=== PATIENT | male | born 1950 | race Caucasian/White ===

== ENCOUNTER → 2016-07-17 | Outpatient (CLI) | payer OTHER, BC ==
[2016-07-17 11:03] LABS: BASO % 0.2 %; BASO ABS # 0.01 K/uL (0-0.2); COMPLETE YES; EOS % 2.3 %; HEMATOCRIT 37.1 % (42-52); LYMPH % 41.1 %; LYMPH ABS # 1.98 K/uL (1.2-3.4); MEAN CORPUSCULAR HEMOGLOBIN 28.8 pg (25-34); MEAN CORPUSCULAR HGB CONC 32.3 g/dl (32-36); MEAN PLATELET VOLUME 10.5 fL (7.4-10.4); MONO % 13.5 %; NEUT % 42.9 %; PLATELET COUNT 178 K/uL (130-400); RED BLOOD COUNT 4.17 M/uL (4.7-6.1); WHITE BLOOD COUNT 4.82 K/uL (4.8-10.8)
[2016-07-17 11:05] LABS: BLOOD UREA NITROGEN 19 mg/dl (7-18); BUN/CREATININE RATIO 14.2 (10-20); CALCIUM 8.7 mg/dl (8.5-10.1); CARBON DIOXIDE 26 mmol/L (21-32); CHLORIDE 106 mmol/L (98-107); GLUCOSE 86 mg/dl (70-99); POTASSIUM 4.6 mmol/L (3.5-5.1); SODIUM 140 mmol/L (136-145)
[2016-07-17 11:10] LABS: FERRITIN 13.1 ng/ml (8.0-388.0); PROSTATE SPECIFIC ANTIGEN 0.395 ng/ml (0.000-4.000); TOTAL IRON BINDING CAPACITY 393 mcg/dl (250-450)
[2016-07-17 13:47] LABS: ESTIMATED AVERAGE GLUCOSE 114 mg/dl; HA1C FLAG Normal (Normal)
--- NOTE | 2016-07-21 12:48 | CODING QUERY MEDICAL NECESSITY ---
SUPPORTING DIAGNOSIS NEEDED A supporting diagnosis is required for the test/procedure performed on this patient in order for us to be reimbursed by the patient's insurance. Please provide a supporting diagnosis for the following test/procedure listed below next to the test name along with your signature. *If there is no additional diagnosis for this patient that would support the following test/procedure please document that below next to the test/procedure. Test(s)/Procedure(s) that require a supporting diagnosis: * GLYCATED HEMOGLOBIN DIAGNOSIS: * DOS: 07/17/16 Provider Signature: Date: Thank you oBnnie Burton Health Information Management Once completed, please kindly fax back to [phone] For questions please call [phone]
== END | disposition home or self-care (01) ==
LOC: C.LABBC 08:33
PROVIDERS: ATTEND Family Medicine
DX: I10 Essential (primary) hypertension (principal); D64.9 Anemia, unspecified; R73.03 Prediabetes; Z98.84 Bariatric surgery status; E53.8 Deficiency of other specified B group vitamins; E51.9 Thiamine deficiency, unspecified; Z12.5 Encounter for screening for malignant neoplasm of prostate

== ENCOUNTER → 2017-02-19 | Outpatient (CLI) | payer OTHER, BC ==
[2017-02-19 10:49] LABS: BASO % 0.2 %; BASO ABS # 0.01 K/uL (0-0.2); COMPLETE YES; EOS % 2.8 %; LYMPH % 43.6 %; LYMPH ABS # 1.86 K/uL (1.2-3.4); MEAN CORPUSCULAR HEMOGLOBIN 28.1 pg (25-34); MEAN CORPUSCULAR HGB CONC 30.5 g/dl (32-36); MEAN PLATELET VOLUME 10.6 fL (7.4-10.4); MONO % 13.6 %; NEUT % 39.8 %; PLATELET COUNT 181 K/uL (130-400); RED BLOOD COUNT 4.02 M/uL (4.7-6.1); WHITE BLOOD COUNT 4.27 K/uL (4.8-10.8)
[2017-02-19 11:13] LABS: BLOOD UREA NITROGEN 20 mg/dl (7-18); BUN/CREATININE RATIO 18.1 (10-20); CALCIUM 8.9 mg/dl (8.5-10.1); CARBON DIOXIDE 25 mmol/L (21-32); CHLORIDE 107 mmol/L (98-107); GLUCOSE 84 mg/dl (70-99); POTASSIUM 4.6 mmol/L (3.5-5.1); SODIUM 139 mmol/L (136-145)
[2017-02-19 11:18] LABS: CHOLESTEROL 143 mg/dl (0-200); CHOLESTEROL/HDL RATIO 2.7; FERRITIN 12.9 ng/ml (8.0-388.0); HDL CHOLESTEROL 53 mg/dl; LDL CHOLESTEROL CALCULATED 81 mg/dl; TRIGLYCERIDES 45 mg/dl (0-150); VERY LOW DENSITY LIPOPROT CALC 9 mg/dl
== END | disposition home or self-care (01) ==
LOC: C.LABBC 08:06
PROVIDERS: ATTEND Family Medicine
DX: I10 Essential (primary) hypertension (principal); R73.03 Prediabetes; K21.9 Gastro-esophageal reflux disease without esophagitis; E53.8 Deficiency of other specified B group vitamins; Z98.84 Bariatric surgery status; Z13.220 Encounter for screening for lipoid disorders

== ENCOUNTER → 2017-08-24 | Outpatient (CLI) | payer OTHER, BC ==
[2017-08-24 10:34] LABS: BASO % 0.5 %; BASO ABS # 0.02 K/uL (0-0.2); EOS % 2.5 %; EOS ABS # 0.11 K/uL (0-0.5); HEMATOCRIT 37.8 % (42-52); HEMOGLOBIN 11.6 g/dL (14.0-18.0); IG# 0.01 K/uL (0.00-0.02); LYMPH % 40.1 %; LYMPH ABS # 1.78 K/uL (1.2-3.4); MEAN CELL VOLUME 91.3 fL (80-100); MEAN CORPUSCULAR HGB CONC 30.7 g/dl (32-36); MEAN PLATELET VOLUME 10.4 fL (7.4-10.4); MONO % 13.1 %; MONO ABS # 0.58 K/uL (0.11-0.59); NEUT % 43.6 %; NEUT ABS # 1.94 K/uL (1.4-6.5); PLATELET COUNT 211 K/uL (130-400); RED CELL DISTRIBUTION WIDTH SD 46.5 fL (36.4-46.3); WHITE BLOOD COUNT 4.44 K/uL (4.8-10.8)
[2017-08-24 10:56] LABS: BLOOD UREA NITROGEN 19 mg/dl (7-18); CALCIUM 9.3 mg/dl (8.5-10.1); CARBON DIOXIDE 28 mmol/L (21-32); GLUCOSE 91 mg/dl (70-99); POTASSIUM 4.4 mmol/L (3.5-5.1); SODIUM 137 mmol/L (136-145)
[2017-08-24 10:57] LABS: HEMOGLOBIN A1C 5.7 % (4.5-5.6)
== END | disposition home or self-care (01) ==
LOC: C.LABBC 07:45
PROVIDERS: ATTEND Family Medicine
DX: I10 Essential (primary) hypertension (principal); D64.9 Anemia, unspecified; Z98.84 Bariatric surgery status; E53.8 Deficiency of other specified B group vitamins; R73.03 Prediabetes

== ENCOUNTER 2023-08-18 06:25 | Observation (INO) ==
--- NOTE | 2023-08-06 11:33 | PAT Medication Instructions ---
Medication Instructions Date of Service August 06, 2023 Home Medications Medication Instructions Recorded valsartan 80 mg tablet 80 mg PO BID #180 tabs 11/25/22 pantoprazole 40 mg tablet,delayed 40 mg PO QAM #90 tabs 04/13/23 release ketoconazole 2 % topical cream 1 applic topical BID #30 grams 07/30/23 ferrous sulfate 27 mg iron tablet 27 mg PO QAM valsartan 80 mg tablet 80 mg PO BID pantoprazole 40 mg tablet,delayed release 40 mg PO QAM ketoconazole 2 % topical cream 1 applic topical BID cholecalciferol (vitamin D3) 50 mcg (2,000 unit) capsule 2,000 units PO QAM cyanocobalamin (vitamin B-12) 1,000 mcg tablet 1,000 mcg PO QAM pediatric multivitamin no.76 (Flintstones Complete chewable tablet) 1 tab PO QAM STOP taking 24 hours before surgery ketoconazole 2 % topical cream 1 applic topical BID DO NOT take the morning of surgery ferrous sulfate 27 mg iron tablet 27 mg PO QAM valsartan 80 mg tablet 80 mg PO BID cholecalciferol (vitamin D3) 50 mcg (2,000 unit) capsule 2,000 units PO QAM cyanocobalamin (vitamin B-12) 1,000 mcg tablet 1,000 mcg PO QAM pediatric multivitamin no.76 (Flintstones Complete chewable tablet) 1 tab PO QAM Take morning of surgery With a small sip of water, OTHERWISE NOTHING TO EAT OR DRINK AFTER MIDNIGHT: pantoprazole 40 mg tablet,delayed release 40 mg PO QAM Take evening before surgery valsartan 80 mg tablet 80 mg PO BID Other Notes If you have any questions please call us at [phone] or [phone] or [phone] or [phone]
--- NOTE | 2023-08-06 11:35 | Anesthesiology Consultation ---
Date of Service August 06, 2023 Assessment & Plan (1) Encounter for pre-operative examination: - medical clearance 08/07/23: "...yes patient is medically cleared for surgery..." - PCP office visit 07/27/23 [place]: "...EKG done in office today, Sinus rhythm, no acute changes, no changes dating back to 1995 he is at acceptable risk to proceed with planned surgery..." - Outpatient joint assessment: Patient is currently scheduled for inpatient pathway. If re-evaluated and patient/surgeon requests outpatient pathway, patient is not recommended candidate for outpatient joint program from anesthesia standpoint. Chart Review Chart Review: Acceptable Risk for Surgery and Patient seen in Pre Admission Testing Teaching & Discussion Pre-Anesthesia Teaching/Discussion Notes: Instructed NPO after midnight before surgery, except medications with 15 cc of water. Medication instructions provided according to the PAT guidelines. History Surgery Operation Date: 08/18/23 08:05 Proposed Procedures p Right Total Shoulder Arthroplasty Reverse - Zana Nain Campbell MD Height/Weight Height: 5 ft 7 in Weight: 107 kg Allergies Allergy/AdvReac Type Severity Reaction Status Date / Time No Known Drug Allergies Allergy Verified 08/06/23 11:20 Medications Home Medications Medication Instructions Recorded Confirmed Last Taken ferrous sulfate 27 mg iron tablet 27 mg PO QAM 09/11/20 08/06/23 Unknown valsartan 80 mg tablet 80 mg PO BID #180 tabs 11/25/22 08/06/23 Unknown pantoprazole 40 mg tablet,delayed 40 mg PO QAM #90 tabs 04/13/23 08/06/23 Unknown release ketoconazole 2 % topical cream 1 applic topical BID #30 grams 07/30/23 08/06/23 Unknown cholecalciferol (vitamin D3) 50 2,000 units PO QAM 08/06/23 08/06/23 Unknown mcg (2,000 unit) capsule cyanocobalamin (vitamin B-12) 1,000 mcg PO QAM 08/06/23 08/06/23 Unknown 1,000 mcg tablet pediatric multivitamin no.76 1 tab PO QAM 08/06/23 08/06/23 Unknown (Flintstones Complete chewable tablet) Past Medical History Medical History (Updated 08/06/23 @ 12:18 by Bianca Steward) Anemia Benign essential hypertension controlled, stable per pt Carpal tunnel syndrome of right wrist Common migraine without aura pt denies Depression hx, no meds currently GERD without esophagitis controlled, stable per pt History of anesthesia reaction post-op confusion, denies violent behavior post-op History of COVID-19 06/2023, home test, mild symptoms>resolved Nausea and vomiting after administration of anesthetic agent denies needing scop patch Prediabetes Sleep apnea dx-no longer uses device since having gastric bypass Spinal stenosis Thiamin deficiency Vertigo "once every 2 years or so" Patient denies h/o stroke, seizures, heart attack, heart failure, blood clots/DVTs or blood transfusions. Exercise / Class Metabolic Activity II 4-5 Yardwork/Stairs/Walk up hill (denies chest discomfort or shortness of breath with 1 FOS) Past Family History Family History Mother Family history of diabetes mellitus Stroke Sister Family history of diabetes mellitus 2 Pancreatic cancer Brother Cirrhosis, alcoholic Father Hodgkin lymphoma Other Diabetes Denies family history of Ovarian cancer Prostate cancer Myocardial infarction Breast cancer Colorectal cancer Past Surgical History Surgical History History of appendectomy History of arthroscopy of left knee x4 History of arthroscopy of right knee x2 History of repair of left rotator cuff (04/2016) History of tonsillectomy History of total left knee replacement (TKR) (2000) History of total right knee replacement (TKR) (2009) Hx of colonoscopy Hx of vasectomy S/P ankle fusion right, 03/2019 Status post gastric bypass for obesity ~[place], [place] Past Anesthesia History No Hx of Anesthesia Complications and No Family Hx of Anesthesia Complications History of PONV No Hx of Motion Sickness and History of PONV (denies needing scop patch) Social History Smoking Status: Former smoker tobacco type: cigarettes Smoking cigarettes per day: 1PPDx (about 6 years) Do You Dip or Chew Tobacco: No Hx Alcohol Use: Yes Alcohol type: beer alcohol intake frequency: a few times a week Hx Substance Use: No substance use type: does not use Review of Systems Patient denies chest pain, shortness of breath, dyspnea on exertion, fever, chills, cough, wheezing, or palpitations. Physical Exam Vital Signs Vitals BP 123/80 P 66 TEMP 98 SP02 98% on RA RESP 18 Physical Patient resting comfortably in chair in no acute distress, alert and oriented, responding appropriately throughout visit Full cervical extension range of motion without pain TMD < 3 finger breadths Mallampati Score 3 Dentition: chipped right upper tooth and several crowns, denies loose teeth, implants or bridges Lungs: normal respiratory effort. Good air movement, clear throughout to auscultation, no adventitious breath sounds Cardiac: regular rate and rhythm, no murmurs noted Carotid arteries: negative bruit bilat Lab Results Anesthesia Preop Results Results Anesthesia Widget: WBC 5.61 K/ul (4.8-10.8) 07/20/23 Hgb 13.0 g/dl (14.0-18.0) L 07/20/23 Hct 40.5 % (42.0-52.0) L 07/20/23 Plt 281 K/uL (130-400) 07/20/23 Na 137 mmol/L (136-145) 07/20/23 K 4.5 mmol/L (3.5-5.1) 07/20/23 Cl 104 mmol/L (98-107) 07/20/23 CO2 26 mmol/L (21-32) 07/20/23 BUN 17 mg/dl (6-23) 07/20/23 Creat 1.12 mg/dl (0.6-1.4) 07/20/23 Glucose Level 99 mg/dl (70-99(Fasting)) 07/20/23 PT 10.3 Seconds (9.0-12.0) 08/06/23 PTT 27 Seconds (21-31) 08/06/23 INR 0.9 (0.9-1.1) 08/06/23 HA1c 6.2 % (4.5-5.6) H 07/20/23 Urine Color Yellow 08/06/23 Urine Appearance Clear (Clear) 08/06/23 Urine pH 7.5 (4.5-7.5) 08/06/23 Urine Specific [place] 1.008 (1.000-1.030) 08/06/23 Urine Protein Negative (Negative) 08/06/23 Urine Glucose (UA) Negative (Negative) 08/06/23 Urine Ketones Negative (Negative) 08/06/23 Urine Blood Negative (Negative) 08/06/23 Urine Nitrite Negative (Negative) 08/06/23 Urine Bilirubin Negative (Negative) 08/06/23 Urine Urobilinogen Negative (Negative) 08/06/23 Urine Leukocyte Esterase Negative (Negative) 08/06/23 Blood Type A Negative 08/06/23 Antibody Screen NEGATIVE 08/06/23 Testing Electrocardiogram Date: 07/28/23 Sinus rhythm with first degree AV block with occasional supraventricular premature complexes, rate 71 bpm Inferior DE, probably old Chest X-Ray Date: 08/06/23 No acute cardiopulmonary findings.
[2023-08-18] MEDS ORDERED: BUPIVACAINE 0.5 % 5 MG/1 ML PF 10ML VIAL ONE ×2 (06:39)
[2023-08-18] MEDS ORDERED: MIDAZOLAM HCL 1 MG/ML 2ML VIAL ONE (06:48)
[2023-08-18] MEDS ORDERED: fentaNYL citrate PF 100 MCG/2 ML VIAL ONE (06:48)
--- NOTE | 2023-08-18 06:48 | History & Physical Bridge Note ---
Date of Service August 18, 2023 History & Physical Bridge Note I have examined the patient, reviewed the History & Physical and in the interval since the performance of the History & Physical I have noted the following changes of clinical significance: no changes noted
[2023-08-18] MEDS: CeleBREX 200 MG CAP PO SCH (06:54)
[2023-08-18] MEDS: ACETAMINOPHEN 500 MG TAB PO SCH ×2 (06:54→14:06)
[2023-08-18] MEDS: Scopolamine 1 MG TDSY TD SCH (06:54)
[2023-08-18] MEDS: LR 60ML/HR IV SCH (06:58)
[2023-08-18] MEDS: LR 15ML/HR IV SCH (07:11)
[2023-08-18] MEDS: TRANEXAMIC ACID 1,000 MG **IV Pre-op IV SCH (07:35)
[2023-08-18] MEDS ORDERED: ATROPINE SULFATE 0.1 MG/ML 10ML SYR IV PRN (07:55)
[2023-08-18] MEDS ORDERED: HYDROmorphone INJ 1 MG/ML SYRINGE IV PRN ×2 (07:55→13:33)
[2023-08-18] MEDS ORDERED: PROMETHAZINE HCL 6.25 MG in SODIUM CHLORIDE 0.9% 50 ML IV PRN (07:55)
[2023-08-18] MEDS ORDERED: ePHEDrine sulfate 50 MG/ML AMP IV PRN (07:55)
[2023-08-18] MEDS: ceFAZolin 2000MG 2,000 MG/15 ML SYR IV SCH ×2 (08:26→16:42)
--- OUTSIDE RECORDS SUMMARY | 2023-08-18 08:30 | External Medical Summary | Continuity of Care Document ---
Author Name Unknown Organization [id number] Address [address] [place] [id number] Care Team Providers Care J2Ee Software Engineer Name Role Phone Nahomy Nguyễn Primary Care Physician [phone] Encounter [facility] [id number] Date(s): 08/06/23 - 08/06/23 [facility] [address] [place] [id number] [facility] [address] [address] Encounter Diagnosis Left shoulder pain(Discharge Diagnosis) - 08/06/23 Right shoulder pain(Discharge Diagnosis) - 08/06/23 Discharge Disposition: Home or Self Care Attending Physician: MD Shannan, Zana A Allergies, Adverse Reactions, Alerts No Known Allergies Medications Calcium 600+D Start: 01/27/23 14:57:00 EDT Start Date: 01/27/23 Status: Ordered Diovan 80 mg oral tablet Start: 10/19/18 14:09:00 EDT, 1 tab, PO, Daily Start Date: 10/19/18 Status: Ordered Nicolas-Iron Start: 01/27/23 14:57:00 EDT, PO, Daily Start Date: 01/27/23 Status: Ordered multivitamin Start: 08/06/23 9:22:00 EDT, 1 tab, PO, Daily Start Date: 08/06/23 Status: Ordered Protonix 40 mg oral delayed release tablet Start: 10/19/18 14:09:00 EDT, 1 tab, PO, Daily Start Date: 10/19/18 Status: Ordered Vitamin B-12 Start: 10/19/18 14:10:00 EDT, 200 mcg =, Daily Start Date: 10/19/18 Status: Ordered Mental Status 08/06/23 Barriers to Learning one year None evide nt Mandatory Health Literacy Documentation Yes Health Literacy Communication Barriers N ever Primary Language Mozamb[place] Problem List Condition Confirmation Course Effective Dates Status Health St atus Informant Right ankle pain Confirmed Active Right foot pain Confirmed Active Heart burn Confirmed Active H/O total knee replacement Confirmed Active Hypertension Confirmed Active Arthritis of foot Confirmed Active Right knee pain Confirmed Active Right shoulder pain Confirmed Active Left shoulder pain Confirmed Active Postop check Confirmed Active Diagnosis Diagnosis Type Effective Dates Health Status Cl inical Service Informant Left shoulder pain Discharge Diagnosis 08/06/23 Right shoulder pain Discharge Diagnosis 08/06/23 Procedures Procedure Date Related Diagnosis Body Site Status Foot 1 03/25/19 Completed Bariatric operative procedure Completed Knee replacement Complete d Knee replacement Complete d Shoulder Completed 11. Right triple arthrodesis. 2. Percutaneous tendo-Achilles lengthening. Vital Signs Most recent to oldest [Reference Range]: 1 Height 170 cm (08/06/23 9:24 AM) Patient Weight 110 kg (08/06/23 9:24 AM) Body Mass Index 38.06 kg/m2 (08/06/23 9:24 AM) Temperature [36.5-37.9 DegC] 36.4 DegC *LOW* (08/06/23 9:24 AM) Heart Rate 75 bpm (08/06/23 9:24 AM) Blood Pressure 118/74mmHg (08/06/23 9:24 AM) Cuff Pulse Pressure 44 mmHg (08/06/23 9:24 AM) Social History Social History Type Response Smoking Status Never smoked cigaret lexie Sex Male Implantable Device List Procedure Provider Procedure Date Device Type Site Unknown Unknown 03/25/19 Unknown Unknown Device Identifier Serial Number Lot or Batch Number Manufacturing Date Expiration Date Distinct Identification Code MRI Safety Implantable Status Assigning Authority Unknown Unknown [id number] Unknown 12/28/20 Unknown Unknown Active Unkn own Unknown Unknown na Unknown 07/15/20 Unknown Unknown Active Unkn own Unknown Unknown na Unknown Unknown Unknown Unknown Active Unkn own Unknown Unknown na Unknown Unknown Unknown Unknown Active Unkn own Unknown Unknown na Unknown Unknown Unknown Unknown Active Unkn own Ortho Outpt Note * MD Shannan, Zana A: MODIFY MD Shannan, Zana A: MODIFY, MODIFY Event Display: Ortho Outpt Note Authored Date: [id number] Name:NATE BRENNAN Patient Number:[id number] :[id number] Date of Service:08/06/2023 CHIEF COMPLAINT: Follow-up right shoulder pain HPI: [id number] yearoldMalewho presents today forfollow-up of right shoulder pain. Patient reports he fell forward and caught himself with both hands and then fell directly onto his right shoulder. The incident happened at the end of December 2022. He is having pain in his shoulder at today's visit. He has attempted conservative treatment and asks about a rotator cuff repair vs reverse TSA. He has desires to continue playing golf later in his life. Patient has had a PCP visit recently with an EKG. Today he rates his pain 3/10. PHYSICAL EXAM: Focusing on the patient'srightupper extremity: 2+ radial pulse Sensation to light touch is intact distally Motor to the median, radial, ulnar, AIN, PIN, musculocutaneous nervesis intact. Range of motion of the shoulder: Forward elevation 145; Abduction 155; external rotation 10; internal rotation L4 + Scapular substitution Lift-off and belly press intact - Tenderness over the AC joint DIAGNOSTIC REVIEW: An ultrasound from 05/12/2023 revealed biceps tendinopathy, AC joint arthritis with an effusion, full thickness supraspinatus tear and either partial or full- thickness subscapularis tear. I reviewed an MRI of the right shoulder which shows chronic appearing full thickness tear of supraspinatus and subscapularis with associated muscle atrophy and tendon retraction. Glenohumeral and AC joint arthritis andeffusion. Chronic high grade tendon split tearlong head of the biceps, no longer within the bicipital groove. I reviewed 3views of the right shoulder including AP, Scapulary Y, and axillary views which show no acute fracture or dislocation. There is degenerative changes of the AC joint with spurring of theinferior clavicle. Mild degenerative changes of the glenohumeral joint with subchondral cysts in the humeral head and small amount of calcification possibly calcific tendinosis versus bone spur. IMPRESSION: Right shoulder pain secondarily to AC separation Grade 1 with aggravation of degenerative changes and full thickness supraspinatus and subscapularis tears Acute versus acute on chronic PLAN: After a lengthy discussion with the patient today regarding my above clinical findings, as well as reviewing their imaging with them, their treatment options of conservative management versus surgical intervention were discussed. The patient and I discussed a rotator cuff repair vs reverse TSA and we agreed to proceed with the reverse TSA, due to his significant arthritis and rotator cuff tear. - The risk and benefits of each were discussed. - The risks of surgery included but not limited to: Infection, bleeding, nerve damage, continued pain, progression of arthritis, stiffness, failure of the repair, failure of the hardware, and deep vein thrombosis. They would like to proceed with surgery and informed consent was signed for right reverse total shoulder arthroplasty. In the meantime they will proceed with the following: - They may use anti-inflammatories alternating with Tylenol as needed for pain. - Obtain medical clearance from PCP - Obtain CT scan of right shoulder, order was placed - Avoid aggravating activities. Modify activities as needed - Continue HEP as tolerated - They will speak with mysurgery greens cutter and have a history and physical examination performed. The patient understood all my instructions and explanation: all their questions were satisfactorilyaddressed. ATTESTATION: I, Thong Blount, scribing forand in the presence of, Zana Campbell, on this date,08/06/2023 09:32:35. I, Dr. Campbell, saw and examined the patient with Thong Blount acting as my scribe. I reviewed thenote and agree with the documented findings and the plan of care I developed. Electronic Signature on File Electronically Reviewed/Signed by: Thong Blount Author Signature Dt/Tm:08/06/2023 09:58 AM Electronically Reviewed/Signed by: Zana Campbell MD Cosigner Signature Dt/Tm: 08/06/2023 01:05 PM [facility] Cyber Security Administrator [facility] of [facility] [address], [place] [address] DS Patient Care team information Care Team Personnel Name: MD Nguyễn Cara M Position: Referring DIRECT Member Role: Primary Care Provider Address: Address: [address] [place] [id number] Care Team Related Persons Name: SINAN SHARIF Address: home [address] [place] [phone]
[2023-08-18] MEDS ORDERED: DROPERIDOL 5 MG/2 ML VIAL IV PRN (08:44)
[2023-08-18] MEDS ORDERED: PROPOFOL IV EMULSION 10 MG/ML 20 ML VIAL IV ONE (09:01)
[2023-08-18] MEDS ORDERED: ONDANSETRON INJ 2 MG/ML 2 ML VIAL ONE (09:01)
[2023-08-18] MEDS ORDERED: ROCURONIUM BROMIDE 10 MG/ML 5 ML VIAL IV ONE ×2 (09:01→09:24)
[2023-08-18] MEDS ORDERED: LIDOCAINE 2% 2 ML VIAL/AMP(20MG/ML) INFIL ONE (09:01)
[2023-08-18] MEDS ORDERED: SUGAMMADEX SODIUM 200 MG/2 ML VIAL IV ONE (09:02)
[2023-08-18] MEDS: LIDOCAINE 1%/EPINEPHRINE 1:100,000 20 ML VIAL ONE (09:19)
[2023-08-18] MEDS: BUPIVACAINE 0.5 % 5 MG/1 ML MPF 30ML VIAL ONE (09:19)
[2023-08-18] MEDS: ORTHO JOINT ANESTHETIC ONE (09:19)
[2023-08-18] MEDS ORDERED: PHENYLEPHRINE HCL 10 MG/ML VIAL ONE (09:24)
[2023-08-18] MEDS: TRANEXAMIC ACID 1,000 MG **IV Intra-op IV SCH (10:06)
[2023-08-18] MEDS: ROPIV 0.5% 246mg, Ketorolac 30mg, EPINEPHrine 0.5mg in NSS INFIL SCH (11:25)
--- NOTE | 2023-08-18 11:47 | Post Operative Brief Note ---
Immediate Post Op Note v1 Date of Surgery August 18, 2023 Pre & Post Diagnosis Operation Date: 08/18/23 08:05 Pre-Op Diagnosis: Right Shoulder OA, Rotator Cuff Tear Post-Op Diagnosis: Right Shoulder OA, Rotator Cuff Tear I identified the patient and participated in the time-out.: Yes Procedure Operation Date: 08/18/23 08:05 Actual Procedures p Right Reverse Total Shoulder Arthroplasty(Right) - Zana Campbell MD Surgeon Zana Campbell MD Machine Repairer Maintenance Mena Burks PA-C (No fellow avail) Estimated Blood Loss 75 Findings Consistent with Post-Op Diagnosis Fluids 1100 cc Specimens Right humeral head Anesthesia Type General Regional Complications none
--- NOTE | 2023-08-18 11:49 | Operative Report ---
Post Operative Report Pre & Post Diagnosis Operation Date: 08/18/23 08:05 Pre-Op Diagnosis: Right Shoulder OA, Rotator Cuff Tear Post-Op Diagnosis: Right Shoulder OA, Rotator Cuff Tear I identified the patient and participated in the time-out.: Yes Procedure Operation Date: 08/18/23 08:05 Actual Procedures p Right Reverse Total Shoulder Arthroplasty(Right) - Zana Campbell MD Surgeon Zana Campbell MD Wool Washer Feeder Mena Burks PA-C (No fellow avail) Estimated Blood Loss 75 Findings See Below Right shoulder OA, osteophytes, sclerosis, Supraspinatus tear Shoulder ROM Pre-op: FF 140 deg; Abd 140 deg w/ crepitus; ER 65 deg; IR -30 deg Shoulder ROM Post-op: FF 155 deg; Abd 160 deg; ER 95 deg; IR 40 deg Fluids 1100 cc Specimens Right humeral head Anesthesia Type General Regional Complications none Indications Patient is a 73-year-old male who developed right shoulder OA and rotator cuff tear with pain and decreased mobility. I recommended that she undergo a right shoulder Reverse TSA. The patient understands the risks of the operation including bleeding, infection, re-operation, damage to nerves and arteries, continued shoulder pain, shoulder stiffness, infection, and/or loosening of the components which may require additional surgery. The patient also understands the risks of heart attack, stroke, pulmonary embolus, and . The patient wished to proceed and the consent form was signed. Description of Procedure IMPLANTS: Arthrex Univers Revers Modular Glenoid System 1) Humeral Stem 12 Univers Reverse [place] Stem, with size 36 Neutral Suture Cup at 135. 2) Humeral Liner 36, + 3 mm. 3) Glenoid Modular Baseplate 24 mm & Central Screw 10 x 20 mm. 4) Glenosphere 36/24 mm + 4 Lateral offset. 5) Glenoid Locking screw 5.5 x (24 & 28 mm). Mena Burks PA-C is assisting with positioning, retracting, and closure due to fellow not available. PROCEDURE: The patient was taken to the Operating Room and placed in the beach-chair position after administration of an interscalene block and general anesthesia. 2 g of intravenous Ancef were administered. The right shoulder was then prepped and draped in the standard sterile fashion. Sequential compression devices were placed in the legs. TXA 1 g was given pre-op and a second dose was given before prepping the humeral shaft. The patient was identified and a multidisciplinary time-out identified the right shoulder as the correct shoulder and operative limb. First, the coracoid, acromion, clavicle, and planned deltopectoral incision were marked and then anesthetized with a 50:50 mixture of 1% lidocaine and 0.5% Marcaine with epinephrine. Sharp dissection was carried down to the deltopectoral interval. The cephalic vein was identified and protected laterally as was the deltoid. The deltopectoral interval was dissected to expose the clavipectoral fascia which was then incised. Blunt dissect was used to separate the deltoid from the humeral head and rotator cuff. A self-retaining shoulder retractor was placed beneath the conjoined tendon and deltoid muscle, exposing the subscapularis tendon. The superior 1cm of the Pec major was released. The biceps tendon was identified in its groove and had degeneration it was tenodesed to the Pec major tendon with #1 Vicryl. The biceps tendon was unroofed from its groove, and the rotator interval was split to the base of the coracoid and the biceps was released from the glenoid. The subscapularis was released and tagged. The torn Supraspinatus was tagged with #1 Vicryl. Next, the humeral head was dislocated by adducting, extending, and externally rotation and the capsulotomy was carried down all the way around to the posterior aspect of the humeral head, taking care to stay on bone. Any humeral osteophytes anterior, inferiorly were removed with a rongeur to identify the medial calcar on the humeral neck. The humeral intramedullary entry point was entered posterior to the bicipital groove with a 2.4mm guide pin, followed by 6 mm drill, and then IM reamer. The resection guide was attached to the IM reamer and pinned to the humeral head with desired resection of 135. The IM reamer was removed and the humeral head was resected in the standard fashion. The resection protector was placed over the humeral surface. Our attention was drawn to the glenoid. The humerus was retracted and displaced posteriorly. The labrum was circumferentially removed as was the anterior capsule, which was carefully dissected free from the subscapularis tendon. The glenoid was exposed with Cavazos/Derra/90 deg Eloise retractor superiorly, Guzman retractor anteriorly, and Batman retractor posteriorly. The glenoid was prepped with curettes to remove any remaining cartilage. Using the specific VIP patient specific glenoid aiming guide for a 24 mm baseplate was used to place the 2.8 mm guide wire. The glenoid surface was prepped for the baseplate with the glenoid reamers (peripheral and inferior offset). The modular central screw was prepped with cannulated 10 mm drill, then tapped to a depth of 20 mm. The baseplate with central screw was screwed into place flush to the glenoid. The inferior screw hole was drilled first followed by the superior screw and a locking screws were placed. The glenosphere was inserted onto the baseplate and locked into place in the standard fashion. The humerus was dislocated and humeral broaches 5 through 12 were sequentially placed in the humeral shaft until excellent fit. The A/P position of the broach was checked. The central reamer guide was placed. The humeral cup reamer prepped the remainder of the humerus. The 12 stem was impacted into place with excellent purchase was achieved. The humeral trial liner 3 mm was placed. The shoulder was reduced with excellent fit and good stability of 1+ translation anteriorly and posteriorly. The shoulder ROM showed improved motion noted above. The definitive humeral liner was then placed. The Supraspinatus and Subscapularis were repaired by tying the sutures to the shaft and implant. The rotator interval was closed with 0 Vicryl. The ROM and stability was unchanged. The pulsatile lavage was used to copiously irrigate the wound throughout the case. The deltopectoral interval was re-approximated with #1-Vicryl, the subcutaneous tissue was closed with 3-0 Vircyl, and the skin was closed with ZipLine and Shield. The wounds were dressed with sterile gauze, and Tegaderm. The patient was then transferred to the PACU in stable condition after application of an abduction sling. POST-OP: The patient will be admitted for observation overnight. Patient will be seen by PT/OT prior to discharge. Pain medicine will be used as needed. Continue abduction sling 4 weeks. I attest to the content of the Intraoperative Record and any orders documented therein. Any exceptions are noted below.
--- NOTE | 2023-08-18 12:09 | Operative Report ---
Post Operative Report Pre & Post Diagnosis Operation Date: 08/18/23 08:05 Pre-Op Diagnosis: Right Shoulder Rotator Cuff Tear, Right shoulder arthritis Post-Op Diagnosis: Right Shoulder Rotator Cuff Tear, Right shoulder arthritis I identified the patient and participated in the time-out.: Yes Procedure Operation Date: 08/18/23 08:05 Actual Procedures p Right Reverse Total Shoulder Arthroplasty(Right) - Zana Campbell MD Surgeon Opal Burks PA-C Technical Editor Mena Burks PA-C (No fellow avail) Estimated Blood Loss 75 Findings Consistent with Post-Op Diagnosis Osteoarthritis right shoulder rotator cuff tear Specimens humeral head Anesthesia Type General Regional Description of Procedure Patient was taken to the operating room and placed under general anesthesia with a peripheral nerve block. Time out was performed. He was given 2 g of IV Ancef for surgical prophylaxis. He was given 1 g of IV TXA preoperatively. Patient was prepped and draped in routine sterile fashion. Is present during the entire case and assisted with positioning, tissue retraction, trialing of implants, implantation of hardware, closure and dressings. Please see Dr. Campbell's operative report for further details regarding today's procedure. Patient was awakened and transferred to the recovery room in stable condition. I attest to the content of the Intraoperative Record and any orders documented therein. Any exceptions are noted below.
--- NOTE | 2023-08-18 12:46 | XRay Report ---
XR shoulder RT min 2V routine CLINICAL HISTORY: Ap and scapular Y view TECHNIQUE: 2 views of the right shoulder were obtained. Comparison: Comparison is made to shoulder radiograph 01/27/2023 FINDINGS: Patient is status post shoulder arthroplasty with expected postsurgical changes including soft tissue swelling and subcutaneous emphysema. No periarticular lucency or hardware fracture is seen. IMPRESSION: Expected postoperative appearance status post placement of shoulder arthroplasty. ACT 112: Negative or not required by law. Electronically signed by: Ney Rothman M.D. 08/18/2023 12:44 PM
--- NOTE | 2023-08-18 13:00 | Anesthesiology Progress Note ---
Date of Service August 18, 2023 Anesthesia Post Procedure Vital Signs Vital Signs: Temp Pulse Pulse Resp BP Pulse Ox O2 Del Method 08/18/23 12:50 36.4 C L 73 16 107/41 L 95 Room Air 08/18/23 12:40 68 12 110/62 99 Oxymask 08/18/23 12:30 84 12 102/60 98 Oxymask 08/18/23 12:20 69 18 108/54 L 100 Oxymask 08/18/23 12:10 84 16 110/67 97 Oxymask 08/18/23 12:03 36.0 C L 79 16 96/68 L 96 Oxymask 08/18/23 06:40 36.6 C 68 16 139/71 98 Room Air O2 Flow Rate 08/18/23 12:50 08/18/23 12:40 4 08/18/23 12:30 4 08/18/23 12:20 4 08/18/23 12:10 4 08/18/23 12:03 6 08/18/23 06:40 Pain Intensity Right Shoulder: Pain Intensity: 5 Transfer of Care Handoff Completed per policy Notes Mental Status: alert / awake / arousable and participated in evaluation Nausea / Vomiting: adequately controlled Pain: adequately controlled Airway Patency, RR, SpO2: stable & adequate BP & HR: stable & adequate Hydration State: stable & adequate Anesthetic Complications: no major complications apparent and Pt Satisfied with anesthetic care
[2023-08-18] MEDS ORDERED: TAMSULOSIN HCL 0.4 MG CAP PO PRN (13:33)
[2023-08-18] MEDS ORDERED: MAGNESIUM HYDROXIDE SUSP 30 ML UDC PO PRN (13:33)
[2023-08-18] MEDS ORDERED: METOCLOPRAMIDE HCL INJ 5 MG/ML 2 ML VIAL IV PRN (13:33)
[2023-08-18] MEDS ORDERED: NALOXONE HCL 0.4 MG/1 ML VIAL/CARP IV PRN (13:33)
[2023-08-18] MEDS ORDERED: ONDANSETRON INJ 2 MG/ML 2 ML VIAL IV PRN (13:33)
[2023-08-18] MEDS ORDERED: HYDROmorphone INJ 0.5 MG/0.5 ML SYR IV PRN (13:33)
[2023-08-18] MEDS ORDERED: bisacodyL 10 MG SUPP PR PRN (13:33)
[2023-08-18] MEDS: SODIUM CHLORIDE 0.9% 1,000 ML IV SCH (14:04)
[2023-08-18] MEDS: ASCORBIC ACID 500 MG TAB PO SCH (16:42)
[2023-08-18] MEDS: FERROUS GLUCONATE 324 MG TAB PO SCH (16:42)
[2023-08-18] MEDS: Scopolamine CHECK PATCH PLACEMENT SCH (16:43)
[2023-08-18] MEDS: DOCUSATE SODIUM 100 MG CAP PO SCH (19:36)
[2023-08-18] MEDS: SENNA 8.6 MG TAB PO SCH (19:36)
[2023-08-18] MEDS: oxyCODONE HCL IR 5 MG TAB (IMMEDIATE RELEASE) PO PRN (19:37)
[2023-08-18] MEDS: VALSARTAN 80 MG TAB PO SCH (19:37)
[2023-08-19 06:19] LABS: Hematocrit (blood only) 34.9 % (42.0-52.0); Hemoglobin 10.8 g/dl (14.0-18.0); Mean Corpuscular Hemoglobin 29.9 pg (25.0-34.0); Mean Corpuscular Hgb Conc 30.9 g/dL (32.0-36.0); Mean Corpuscular Volume 96.7 fL (80.0-100.0); Platelet Count 173 K/uL (130-400); RDW Coefficient of Variation 14.2 % (11.5-14.5); RDW Standard Deviation 50.8 fL (36.4-46.3); Red Blood Count 3.61 M/uL (4.70-6.10); White Blood Count 6.98 K/ul (4.8-10.8)
[2023-08-19 06:37] LABS: BUN Creatinine Ratio 13.8 (10-20); Calcium 8.7 mg/dl (8.6-10.3); Creatinine Clr Calc Pharmacy 67.8 ml/min; Est GFR (Non-African American) 62.1 ml/min; Potassium 4.3 mmol/L (3.5-5.1)
[2023-08-19] MEDS: MULTIVITAMIN CHEWABLE TAB PO SCH (07:37)
[2023-08-19] MEDS: CHOLECALCIFEROL 25 MCG (1000 UNITS) TAB PO SCH (07:37)
[2023-08-19] MEDS: ASPIRIN 81 MG ECTAB PO SCH (07:37)
[2023-08-19] MEDS: PANTOprazole 40 MG TAB PO SCH (07:37)
[2023-08-19] MEDS: CYANOCOBALAMIN (B-12) 500 MCG TABLET PO SCH (07:38)
--- NOTE | 2023-08-19 09:51 | Orthopedic Progress Note ---
Date of Service August 19, 2023 Assessment & Plan (1) Status post reverse total shoulder replacement: Plan: Postop day 1-status post reverse total shoulder arthroplasty right shoulder with Dr. Campbell Home medications have been continued. PT and OT this morning. He did well and was safe for discharge. Aspirin 81 mg p.o. twice daily for 6 weeks after surgery. Teds and AV impulse boots while in house. Silverlon dressing applied to the right shoulder today. Sling for comfort when out of bed. Sling readjusted today. Home exercises as taught by the physical therapist and occupational therapist today. Regular diet. Pain medication as needed for pain. Ice to right shoulder as needed for pain and swelling. Case management for disposition needs. He is not interested in home health. He feels he can do his home exercises on his own at home. Advise no heavy pushing, pulling or lifting. No lifting more than a coffee cup in his right hand. He may use his hand for light daily activities as tolerated. Discharge to home today. Will discuss findings with Dr. Campbell. Follow-up as outpatient as scheduled. Call with any problems, questions or concerns. Patient understands and agrees with the plan. Admission and Anticipated Discharge Date Admission Date: August 18, 2023 Subjective Patient sitting up in bed. Doing well. at bedside. He has not had any postoperative nausea, vomiting. He does have some tingling in his fingers and was told by anesthesiology that his block might still be working. He is anxious to go home. He is tolerated breakfast. He overall feels very well. Physical Exam Musculoskeletal: Exam of right upper extremity: He has no distal edema. Mild paresthesias in the dorsum of his hand and into the index and ring finger. He has full ability to straighten and flex his fingers, he is able to cross his fingers. Strength is 5/5. Distal pulses are 1+. Capillary fill is brisk. Nontender throughout the fingers, wrist, forearm or elbow. Tolerates gentle range of motion with pronation supination, flexion extension of the elbow, has full wrist range of motion. Incision of his right shoulder is clean, dry and intact. Zipline in place. Scant bloody drainage on the dressings. A Silverlon dressing was applied today. No effusion. No significant ecchymosis of the right upper extremity. Mild ecchymosis down into the lower aspect of the upper arm. Results & Data Vital Signs (Past 12 Hours) Vital Signs Temp Pulse Pulse Pulse Resp BP Pulse Ox 08/19/23 09:37 36.6 C 69 68 82 16 112/68 92 08/19/23 07:23 36.6 C 82 16 112/68 92 08/19/23 03:34 36.8 C 68 18 106/66 96 08/18/23 22:59 36.6 C 76 18 107/63 96 O2 Del Method 08/19/23 09:37 08/19/23 07:23 Room Air 08/19/23 03:34 Room Air 08/18/23 22:59 Room Air Laboratory Results 08/19/23 Range/Units 05:35 WBC 6.98 (4.8-10.8) K/ul RBC 3.61 L (4.70-6.10) M/uL Hgb 10.8 L (14.0-18.0) g/dl Hct 34.9 L (42.0-52.0) % MCV 96.7 (80.0-100.0) fL MCH 29.9 (25.0-34.0) pg MCHC 30.9 L (32.0-36.0) g/dL RDW Std Deviation 50.8 H (36.4-46.3) fL RDW Coeff of Jenifer 14.2 (11.5-14.5) % Plt Count 173 (130-400) K/uL MPV 10.0 (9.4-12.4) fL Sodium 137 (136-145) mmol/L Potassium 4.3 (3.5-5.1) mmol/L Chloride 105 (98-107) mmol/L Carbon Dioxide 27 (21-32) mmol/L Anion Gap 5 (3-11) BUN 16 (6-23) mg/dl Creatinine 1.16 (0.6-1.4) mg/dl Est Cr Clr Drug Dosing 67.8 ml/min Est GFR ( Amer) 72.0 ml/min Est GFR (Non-Af Amer) 62.1 ml/min BUN/Creatinine Ratio 13.8 (10-20) Glucose 99 (70-99(Fasting)) mg/dl Calcium 8.7 (8.6-10.3) mg/dl Diagnostic Findings XR shoulder RT min 2V routine CLINICAL HISTORY: Ap and scapular Y view TECHNIQUE: 2 views of the right shoulder were obtained. Comparison: Comparison is made to shoulder radiograph 01/27/2023 FINDINGS: Patient is status post shoulder arthroplasty with expected postsurgical changes including soft tissue swelling and subcutaneous emphysema. No periarticular lucency or hardware fracture is seen. IMPRESSION: Expected postoperative appearance status post placement of shoulder arthroplasty.
--- NOTE | 2023-08-19 11:33 | Discharge Summary ---
Date of Service August 19, 2023 Discharge Data Procedures Performed Operation Date: 08/18/23 08:05 Actual Procedures p Right Reverse Total Shoulder Arthroplasty(Right) - Zana Campbell MD Hospital Course (1) Status post reverse total shoulder replacement: Patient was kept in observation at [facility] after undergoing elective right reverse total shoulder arthroplasty with Dr. Campbell on 08/18/2023. He tolerated the procedure well without any intraoperative complications. He was given 2 g of IV Ancef which was continued for 24 hours after surgery. He also was given 1 g of TXA preoperatively and intraoperatively from bleeding prophylaxis. Postoperative x-rays were performed in the recovery room in show of right shoulder stable prosthesis with no evidence of hardware failure or fracture. He was allowed out of bed, weight-bear as tolerated on bilateral lower extremities. Sling right upper extremity at all times when out of bed. Nonweightbearing right arm. No lifting more than a coffee cup. Physical therapy and Occupational Therapy consults were placed and he was taught home exercises to do on his own at home. Ice and elevation for swelling. His home medications were continued. He was given oxycodone, Tylenol and IV Dilaudid as needed for pain. His pain was well-controlled after surgery. He was very pleased with his results. He did not develop any postoperative nausea, vomiting, chest pain, shortness of breath, lightheadedness or dizziness. On postoperative day 1 his intraoperative dressing was removed and a Silverlon dressing was applied. Incision was clean, dry and intact. He did well out of bed and was deemed safe for discharge to his home with his from physical therapy and Occupational Therapy. He was given aspirin 81 mg twice daily for DVT prophylaxis as well as MARTI stockings and AV impulse boots during his inpatient stay. He was discharged to his home in stable condition on August 19, 2023. Discharge instructions were reviewed and discussed. He will follow-up as an outpatient. All questions were answered.
== END 2023-08-19 10:24 | disposition home or self-care (01) ==
LOC: 3E 06:25 → ASU 06:25